=== PATIENT | female | born 1945 | race Caucasian/White ===

== ENCOUNTER 2016-09-07 02:30 | Emergency (ER) | payer OTHER ==
[~2016-09-07 02:30] MED LIST: *UNABLE3; ACCUNEB INH; ALBUTEROL INH; ASA5GR PO; ASAB PO; BACDS PO; BROVANA15 MCG IN; BROVANA15 MCG INH; DETROLLA4 PO; DITRO5 PO; DITROPAN XL10 MG PO; DITROXL5 PO; DOLOPHINE10 MG PO; DOXEPIN HCL100 MG PO; ETODOLAC500 MG PO; FLAG500TAB PO; FLEX PO; FLUCON150 PO; KLOR-CON 1010 MEQ PO; L20 PO; LEVOTHYROXIN112 MCG PO; LEVOTHYROXIN125 MCG PO; LEXAPRO10 PO; LIBRAX PO; LIDOCAINE 2% JELLY TOP; LIPITOR40 PO; LOP25 PO; LOTE40 PO; LYRICA100 MG PO; Levothyroxin PO; MAXALT-MLT5 MG PO; MAXALT5 MG PO; METHADOSE10 MG PO; METHATAB10 PO; METOPROLOL PO; Metoprolol; NEXIUM40 PO; NUCYNTA50 MG PO; NUCYNTA75 MG PO; PRIM50B PO; PROAIR HFA INH; PROTONIX PO; PROVENTSOL INH; PROZ10 PO; PROZAC PO; SINEQUAN 50 MG50 MG PO; SINGULAIR1 PO; SPIRIVA INH; SYMBICORT 160/41 INH INH; SYN112 PO; TEARS NATURA OPH; VERAMYST27.5 MCG NAS; VESICARE10 MG PO; VIB50 PO; VITAMIN D31000 UNIT PO; VITD PO; VOLT75 PO; Vitamin D PO; ZANAFLEX 4 MG TA4 MG PO; ZANAFLEX2 MG PO
[2016-09-07 02:42] LABS: BASOPHILS 0.3 %; BASOPHILS ABSOLUTE 0.02 10/3/uL (0.0-0.16); EOSINOPHILS 5.2 %; EOSINOPHILS ABSOLUTE 0.33 10/3/uL (0.0-0.53); ER CBC TAT 0 Hrs 02 Mins; HEMOGLOBIN 9.3 g/dL (12.0-16.0); IMMATURE GRANULOCYTES 0.6 %; IMMATURE GRANULOCYTES ABSOLUTE 0.04 10/3/uL (0.0-0.11); LYMPHOCYTES 11.1 %; LYMPHOCYTES ABSOLUTE 0.71 10/3/uL (0.67-4.30); MEAN CORPUS HGB CONC 31.7 g/dL (32.0-36.0); MEAN CORPUSCULAR HEMOGLOB 25.3 pg (26.0-34.0); MEAN PLATELET VOLUME 9.5 fL (9.2-13.0); MONOCYTES 6.7 %; MONOCYTES ABSOLUTE 0.43 10/3/uL (0.21-1.20); NEUTROPHILS 76.1 %; NEUTROPHILS ABSOLUTE 4.85 10/3/uL (2.02-8.40); PLATELET COUNT 205 10/3/uL (150-400); RBC DISTRIBUTION WIDTH 15.4 % (12.0-16.0); RED CELL COUNT 3.67 10/6/uL (4.0-5.6); WHITE BLOOD CELLS 6.4 10/3/uL (4.5-10.5)
[2016-09-07 02:43] LABS: HEMATOCRIT 29.3 % (36.0-48.0); MANUAL DIFF NO %; MEAN CORPUSCULAR VOLUME 79.8 fL (80-100)
[2016-09-07 02:49] LABS: ASCORBIC ACID (UR NOT ORDER) NEG (NEG); BILIRUBIN, URINE NEGATIVE (NEG); ER URINALYSIS TAT 0 Hrs 05 Mins; KETONE, URINE NEGATIVE (NEG); LEUKOCYTE ESTERASE(NOT OR NEG (NEG); NITRITE (URINE) NEG (NEG); WBC (NOT ORDERED) (RFLEX) < 1 (0-5)
[2016-09-07 03:00] LABS: ALKALINE PHOSPHATASE 68 U/L (45-117); CALCIUM, SERUM 8.5 MG/DL (8.5-10.4); CHLORIDE, SERUM 97 MMOL/L (96-112); CO2 (CARBON DIOXIDE) 34 MMOL/L (24-34); CREATININE 1.09 MG/DL (0.55-1.02); GFR AFRICAN AMERICAN 60 ML/MIN (>=60); GFR NON AFRICAN AMERICAN 52 ML/MIN (>=60); SGOT(AST) 13 U/L (5-40); SGPT(ALT) 13 U/L (5-65); SODIUM, SERUM 136 MMOL/L (135-148); TOTAL BILIRUBIN 0.5 MG/DL (0-1.2); TOTAL PROTEIN 6.6 G/DL (6.0-8.5)
[2016-09-07 03:01] LABS: A/G RATIO 0.8 (0.7-1.9); ALBUMIN 2.9 G/DL (3.5-5.0); BUN (BLOOD UREA NITROGEN) 9 MG/DL (6-23); GLOBULIN 3.7 G/DL (2.5-4.1); GLUCOSE, SERUM 109 MG/DL (60-99)
== END 2016-09-07 06:45 | disposition home or self-care (01) ==
LOC: ER 02:30
PROVIDERS: Specialist
PROC: 0T2BX0Z Change Drainage Device in Bladder, External Approach (ICD-10-PCS; principal; 2016-09-07)
DX: R33.9 Retention of urine, unspecified (principal); K59.00 Constipation, unspecified; D64.9 Anemia, unspecified; F11.90 Opioid use, unspecified, uncomplicated; J44.9 Chronic obstructive pulmonary disease, unspecified; F03.90 Unspecified dementia, unspecified severity, without behavioral disturbance, psychotic disturbance, mood disturbance, and anxiety; Z88.1 Allergy status to other antibiotic agents; Z88.0 Allergy status to penicillin; Z88.5 Allergy status to narcotic agent; Z88.8 Allergy status to other drugs, medicaments and biological substances; Z79.899 Other long term (current) drug therapy; Z79.82 Long term (current) use of aspirin
CPT/HCPCS: 74176; 80053; 81001; 83690; 85025; 96372; 99284